=== PATIENT | male | born 1950 | race Caucasian/White ===

== ENCOUNTER 2021-05-20 18:06 | Emergency (ER) | payer MEDICARE ==
--- NOTE | 2021-05-20 18:20 | EDM.PDOC ---
ED HPI GENERAL MEDICAL PROBLEM - General Chief Complaint: Neuro Symptoms/Deficits Stated Complaint: SLURRING WORDS/WEAK/FALL Time Seen by Provider: 05/20/21 18:11 - History of Present Illness INITIAL COMMENTS - FREE TEXT/NARRATIVE: 71 year-old male presents the emergency room with generalized weakness and speech difficulties. He was last normal at approximately 4 PM this afternoon. The patient is traveling through from [facility] and staying in an RV with his . He has not been eating or drinking as much as he normally does because he has to stop frequently to void and he has been driving. Today they set up their RV and the patient started complaining of just generalized weakness and being tired at 4:00 this afternoon. The patient's noted that he had some speech difficulties. The patient apparently is on a blood thinner and on aspirin they are not sure which blood thinner he is on. His med list and medications were left at the RV about 45 minutes from this location. Patient denies any pain at this time other than in his right thigh he has had problems with this in the past. He has been in therapy for this. He denies a headache. He has not had any recent fevers or chills. He is not having any chest pain or breathing difficulties. - Related Data Allergies Allergy/AdvReac Type Severity Reaction Status Date / Time No Known Allergies Allergy Verified 05/20/21 18:18 Home Meds: Home Meds . [Unable to Verify Home Med List] 05/20/21 [History] ED ROS GENERAL - Review of Systems Review Of Systems: See Below Constitutional: Reports: Weakness, Fatigue HEENT: Reports: No Symptoms Respiratory: Reports: No Symptoms Cardiovascular: Reports: No Symptoms Endocrine: Reports: No Symptoms GI/Abdominal: Reports: No Symptoms Musculoskeletal: Reports: Leg Pain (Related to an old hip injury on the right), Muscle Stiffness Skin: Reports: No Symptoms Neurological: Reports: Confusion, Difficulty Walking, Weakness, Other (Mostly generalized weakness). Denies: Headache Psychiatric: Reports: No Symptoms Hematologic/Lymphatic: Reports: No Symptoms ED EXAM, GENERAL - Physical Exam Exam: See Below Exam Limited By: Other (He seems to have some confusion that is out of the ordinary for him his is a good historian however) General Appearance: Alert, No Apparent Distress Eye Exam: Bilateral Eye: Normal Inspection, PERRL Ears: Normal External Exam, Normal Canal, Hearing Grossly Normal, Normal TMs Nose: Normal Inspection, Normal Mucosa, No Blood Throat/Mouth: Normal Inspection, Normal Lips, Normal Teeth, Normal Gums, Normal Oropharynx, Normal Voice, No Airway Compromise Head: Atraumatic, Normocephalic Neck: Normal Inspection, Supple, Non-Tender, Full Range of Motion. No: Lymphadenopathy (L), Lymphadenopathy (R) Respiratory/Chest: No Respiratory Distress, Lungs Clear, Normal Breath Sounds Cardiovascular: Regular Rate, Rhythm, No Edema, No Murmur GI/Abdominal: Normal Bowel Sounds, Soft, Non-Tender Back Exam: Normal Inspection. No: CVA Tenderness (L), CVA Tenderness (R) Extremities: Other (He has some right thigh discomfort apparently this is chronic) Neurological: Other (No asymmetric weakness on exam cranial nerves are grossly intact his speech is not normal according to the ) Skin Exam: Warm, Dry, Intact #1 Interpretation EKG Date: 05/20/21 Rhythm: Other (Minus with a single PVC) Rate (Beats/Min): 68 [place]: Normal P-Wave: Present QRS: Other (*In V1) ST-T: Normal QT: Normal Comparison: NA - No Prior EKG EKG Interpretation Comments: Borderline EKG Course - Vital Signs Last Recorded V/S: Last Vital Signs Temp 36.8 C 05/20/21 18:14 Pulse 71 05/20/21 18:14 Resp 14 05/20/21 18:14 BP 146/108 H 05/20/21 18:14 Pulse Ox 100 05/20/21 18:14 - Orders/Labs/Meds Orders: Active Orders 24 hr Category Date Time Status Head wo Cont [CT] Stat Exams 05/20/21 18:20 Taken Labs: Laboratory Tests 05/20/21 05/20/21 05/20/21 Range/Units 18:13 18:25 18:25 WBC (4.23-9.07) K/mm3 RBC (4.63-6.08) M/mm3 Hgb (13.7-17.5) gm/dl Hct (40.1-51.0) % MCV (79.0-92.2) fl MCH (25.7-32.2) pg MCHC (32.2-35.5) g/dl RDW Std Deviation (35.1-43.9) fL Plt Count (163-337) K/mm3 MPV (9.4-12.3) fl Neut % (Auto) (34.0-67.9) % Lymph % (Auto) (21.8-53.1) % [place] % (Auto) (5.3-12.2) % Eos % (Auto) (0.8-7.0) Baso % (Auto) (0.1-1.2) % Neut # (Auto) (1.78-5.38) K/mm3 Lymph # (Auto) (1.32-3.57) K/mm3 [place] # (Auto) (0.30-0.82) K/mm3 Eos # (Auto) (0.04-0.54) K/mm3 Baso # (Auto) (0.01-0.08) K/mm3 Manual Slide Review PT 11.7 (9.7-12.0) SECONDS INR 1.10 APTT 26.2 (21.7-31.4) SECONDS Sodium 141 (136-145) mEq/L Potassium 3.7 (3.5-5.1) mEq/L Chloride 105 (98-107) mEq/L Carbon Dioxide 26 (21-32) mEq/L Anion Gap 13.7 (5-15) BUN 20 H (7-18) mg/dL Creatinine 1.1 (0.7-1.3) mg/dL Est Cr Clr Drug Dosing 63.60 mL/min Estimated GFR (MDRD) > 60 (>60) mL/min BUN/Creatinine Ratio 18.2 H (14-18) Glucose 94 (70-99) mg/dL POC Glucose 80 (70-99) mg/dL Calcium 8.6 (8.5-10.1) mg/dL Total Bilirubin 0.4 (0.2-1.0) mg/dL AST 15 (15-37) U/L ALT 28 (16-63) U/L Alkaline Phosphatase 83 (46-116) U/L Troponin I < 0.017 (0.00-0.056) ng/mL Total Protein 7.7 (6.4-8.2) g/dl Albumin 3.7 (3.4-5.0) g/dl Globulin 4.0 gm/dL Albumin/Globulin Ratio 0.9 L (1-2) SARS-CoV-2 RNA (MALA) (NEGATIVE) 05/20/21 05/20/21 Range/Units 18:25 18:44 WBC 10.50 H (4.23-9.07) K/mm3 RBC 4.68 (4.63-6.08) M/mm3 Hgb 14.3 (13.7-17.5) gm/dl Hct 43.0 (40.1-51.0) % MCV 91.9 (79.0-92.2) fl MCH 30.6 (25.7-32.2) pg MCHC 33.3 (32.2-35.5) g/dl RDW Std Deviation 45.1 H (35.1-43.9) fL Plt Count 230 (163-337) K/mm3 MPV 9.8 (9.4-12.3) fl Neut % (Auto) 73.1 H (34.0-67.9) % Lymph % (Auto) 16.0 L (21.8-53.1) % [place] % (Auto) 9.3 (5.3-12.2) % Eos % (Auto) 1.0 (0.8-7.0) Baso % (Auto) 0.4 (0.1-1.2) % Neut # (Auto) 7.67 H (1.78-5.38) K/mm3 Lymph # (Auto) 1.68 (1.32-3.57) K/mm3 [place] # (Auto) 0.98 H (0.30-0.82) K/mm3 Eos # (Auto) 0.11 (0.04-0.54) K/mm3 Baso # (Auto) 0.04 (0.01-0.08) K/mm3 Manual Slide Review Normal smear PT (9.7-12.0) SECONDS INR APTT (21.7-31.4) SECONDS Sodium (136-145) mEq/L Potassium (3.5-5.1) mEq/L Chloride (98-107) mEq/L Carbon Dioxide (21-32) mEq/L Anion Gap (5-15) BUN (7-18) mg/dL Creatinine (0.7-1.3) mg/dL Est Cr Clr Drug Dosing mL/min Estimated GFR (MDRD) (>60) mL/min BUN/Creatinine Ratio (14-18) Glucose (70-99) mg/dL POC Glucose (70-99) mg/dL Calcium (8.5-10.1) mg/dL Total Bilirubin (0.2-1.0) mg/dL AST (15-37) U/L ALT (16-63) U/L Alkaline Phosphatase (46-116) U/L Troponin I (0.00-0.056) ng/mL Total Protein (6.4-8.2) g/dl Albumin (3.4-5.0) g/dl Globulin gm/dL Albumin/Globulin Ratio (1-2) SARS-CoV-2 RNA (MALA) Negative (NEGATIVE) - Re-Assessments/Exams Free Text/Narrative Re-Assessment/Exam: 05/20/21 19:[address] was very remarkable for bilateral thalamic posterior limb internal capsule hemorrhages measuring 6 x 7 x 8 mm on the right 13 x 19 x 3 mm on the left the left is surrounded by some vasogenic edema. Case was discussed with Dr. Templeton, neurosurgeon on-call at [facility] in [place]. He would like for the patient to go to [facility] in [place] after discussing CT findings. Dr. Thakkar ER physician is excepting as Dr. Templeton, the neurosurgeon wants a CT as soon as the patient gets there. We still do not have a medication list on the patient the patient's is going to go back and get it. After this the patient will call the emergency room at [facility] to pass this information on. I have given the patient's the phone number to call at the emergency room. Departure - Departure Time of Disposition: 19:29 Disposition: DC/Tfer to Acute Hospital 02 Clinical Impression: Nontraumatic thalamic hemorrhage - Discharge Information Referrals: PCP,Not In Area [Primary Care Provider] - Forms: ED Department Discharge Sepsis Event Note (ED) - Focused Exam Vital Signs: Vital Signs Temp Pulse Resp BP Pulse Ox 05/20/21 18:14 36.8 C 71 14 146/108 H 100 - My Orders Last 24 Hours: My Active Orders 05/20/21 18:20 Head wo Cont [CT] Stat - Assessment/Plan Last 24 Hours: My Active Orders 05/20/21 18:20 Head wo Cont [CT] Stat
--- NOTE | 2021-05-21 10:07 | CT ---
Head CT Technique: Multiple axial sections through the brain were obtained. Intravenous contrast was not utilized. Reconstructed coronal and sagittal images were obtained. Comparison: No prior intracranial imaging is available. Findings: Increased density is noted within both basal ganglia. Findings on the left side measure up to 1.9 cm and findings on the right side measure up to 8 mm. Hounsfield unit measurements correlate to acute blood. Slight diminished density is seen around both these findings compatible with mild vasogenic edema. Ventricles along with basal cisterns and sulci over the convexities are mildly prominent. Minimal areas of diminished density are seen within portions of the periventricular white matter which most likely represent slight small vessel ischemic demyelination change. Atherosclerotic calcification is seen within the carotid siphon and within the vertebral vessels. No other intracranial hemorrhage is seen. No midline shift is noted. Bone window settings were reviewed. No acute calvarial abnormality is appreciated. Visualized paranasal sinuses and mastoid sinuses show nothing acute. Impression: 1. Bilateral basal ganglia hemorrhages. Difficult to exclude extension into the posterior limbs of the internal capsule. Mild edema is noted around these findings compatible with basal vasogenic edema. 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 Please correlate. 2. Mild senescent change as noted above. No midline shift is seen. 3. Atherosclerotic change within the carotid siphon and vertebral vessels. Diagnostic code #5 I agree with preliminary report from [facility], finalized on 05/20/21, 7:43 PM CDT, code 1
== END 2021-05-20 20:10 ==
LOC: JD.ED 18:06
DX: I61.0 Nontraumatic intracerebral hemorrhage in hemisphere, subcortical (principal); Z20.822 Contact with and (suspected) exposure to COVID-19
CPT/HCPCS: 36415; 70450; 80053; 82947; 84484; 85025; 85610; 85730; 93005; 99285; U0002; 93010